=== PATIENT | male | born 1970 | race Caucasian/White ===

== ENCOUNTER 2024-02-07 10:16 | Emergency (ER) | payer OTHER, BC ==
[2024-02-07] MEDS: Proparacaine 0.5% Ophth Soln 15 ML Bottle EYELF ONE (11:53)
[2024-02-07] MEDS: Ketorolac 0.5% Ophth Soln 5 ML Bottle EYELF ONE (12:50)
[2024-02-07] MEDS: Ciprofloxacin 0.3% Ophth Soln 5 ML Bottle EYELF ONE (12:51)
== END 2024-02-07 16:44 | disposition home or self-care (01) ==
LOC: JD.ED 10:16
DX: S05.02XA Injury of conjunctiva and corneal abrasion without foreign body, left eye, initial encounter (principal); Z87.891 Personal history of nicotine dependence; Z86.16 Personal history of COVID-19; Z91.041 Radiographic dye allergy status; Z91.048 Other nonmedicinal substance allergy status; W25.XXXA Contact with sharp glass, initial encounter; Y99.0 Civilian activity done for income or pay
CPT/HCPCS: 99283; A9270; J3490

== ENCOUNTER 2024-03-30 16:02 | Emergency (ER) | payer BC, OTHER ==
[2024-03-30] MEDS: Ketorolac 60 MG/2 ML SDV IM ONE (17:01)
[2024-03-30] MEDS: HYDROmorphone 1 MG/ML Syringe IM ONE (17:02)
== END 2024-03-30 18:21 | disposition home or self-care (01) ==
LOC: JD.ED 16:02
DX: M54.50 Low back pain, unspecified (principal); Z86.16 Personal history of COVID-19; Z79.899 Other long term (current) drug therapy; Z91.041 Radiographic dye allergy status; Z91.018 Allergy to other foods
CPT/HCPCS: 72100; 96372; 99283; J1170; J1885